=== PATIENT | male | born 1980 ===

== ENCOUNTER 2017-09-02 19:05 | Emergency (ER) | payer SELFPAY ==
[~2017-09-02] VITALS: Ht 177.8 cm; Wt 81.6 kg
--- NOTE | 2017-09-02 19:48 | NUR ---
Patient walked in to ER c/o laceration to LEFT 5th proximal digit. Patient had a syncopal episode in the ER waiting area and was brought in to room 4B for safety. Patient has an approximate 1 inch laceration to the proximal portion of the LEFT fifth digit which was cleaned and irrigated with NS, wet dressing applied until MSE can be performed.
[2017-09-02] MEDS ORDERED: TDAP DIPH,PERTUSS,TET VAC/PF 0.5 ML DISP.SYRIN IM ONE ×2 (20:15→20:53)
--- NOTE | 2017-09-02 21:08 | NUR ---
Wound irrigated again, "[employer]kin[employer]" laceration glue at bedside.
[2017-09-02] MEDS ORDERED: LET TOPICAL SOLUTION 8 ML UDC TOP ONE (21:30)
[2017-09-02] MEDS ORDERED: SODIUM BICARBONATE 4.2 % (NEUT) 5 ML VIAL TP ONE (21:30)
[2017-09-02] MEDS ORDERED: LIDOCAINE HCL 2% 20 ML VIAL TP ONE (21:30)
[2017-09-02] MEDS ORDERED: LET TOPICAL SOLUTION 8 ML UDC ONE ×2 (21:50→22:03)
[2017-09-02] MEDS ORDERED: NEOMY/BACITRA/POLYMYXIN B OINT UD PACKET TP ONE ×2 (22:45→22:47)
--- NOTE | 2017-09-02 22:45 | NUR ---
Patient discharged to home in stable conditon. Written and verbal after care instructions given. Patient verbalizes understanding of instructions.
== END 2017-09-02 22:47 | disposition home or self-care (01) ==
LOC: ER 19:08
DX: S61.217A Laceration without foreign body of left little finger without damage to nail, initial encounter (principal); W25.XXXA Contact with sharp glass, initial encounter; Y93.G1 Activity, food preparation and clean up; Y92.89 Other specified places as the place of occurrence of the external cause; Y99.8 Other external cause status
CPT/HCPCS: 12001; 73140; 90471; 90715; 99284; A4663; A4217; J3490

== ENCOUNTER 2017-09-10 15:23 | Emergency (ER) | payer SELFPAY ==
[~2017-09-10] VITALS: Ht 175.3 cm; Wt 81.6 kg
--- NOTE | 2017-09-10 15:52 | NUR ---
PT SEEN BY DR LEGER. PREFERS TO BE SEEN BY DR WALKER. STABLE AMBULATION.
--- NOTE | 2017-09-10 16:18 | NUR ---
Patient is not in the room or wating room,eloped? notified
== END 2017-09-10 16:20 | disposition left against medical advice (07) ==
LOC: ER 15:24
DX: Z48.02 Encounter for removal of sutures (principal); L08.9 Local infection of the skin and subcutaneous tissue, unspecified
CPT/HCPCS: A4663